=== PATIENT | male | born 1960 | race Native Hawaiian/Other Pacific Islander ===

== ENCOUNTER 2019-08-16 19:23 | Emergency (ER) | payer BC ==
[~2019-08-16] VITALS: Ht 180.3 cm; Wt 111.1 kg
[2019-08-16 21:13] LABS: PLATELET COUNT 123 K/uL (142-355)
[2019-08-16 21:20] LABS: POTASSIUM 4.1 mmol/L (3.6-5.2); SODIUM 138 mmol/L (136-145)
[2019-08-16 22:55] VITALS: BP 116/74; TEMP 97.5
== END 2019-08-16 22:55 | disposition home or self-care (01) ==
LOC: ED 19:23
PROVIDERS: Emergency Medicine
DX: J20.9 Acute bronchitis, unspecified (principal); J44.1 Chronic obstructive pulmonary disease with (acute) exacerbation; J44.0 Chronic obstructive pulmonary disease with (acute) lower respiratory infection; F17.210 Nicotine dependence, cigarettes, uncomplicated
CPT/HCPCS: 80053; 83735; 84484; 85027; 87502; 94664; 99283; 99284

== ENCOUNTER 2020-06-27 08:37 | Outpatient (CLI) | payer OTHER | END 2020-06-27 20:05 | disposition home or self-care (01) | LOC: US 08:37 | DX: R10.11 Right upper quadrant pain (principal) ==

== ENCOUNTER 2020-07-30 14:58 | Outpatient (CLI) | payer OTHER | END 2020-07-30 23:20 | disposition home or self-care (01) | LOC: MRI 14:58 | DX: M47.816 Spondylosis without myelopathy or radiculopathy, lumbar region (principal); M54.12 Radiculopathy, cervical region; M96.1 Postlaminectomy syndrome, not elsewhere classified ==

== ENCOUNTER 2020-08-04 07:55 | Outpatient (CLI) | payer OTHER | END 2020-08-04 19:08 | disposition home or self-care (01) | LOC: EMG 07:55 | DX: M54.12 Radiculopathy, cervical region (principal); M47.816 Spondylosis without myelopathy or radiculopathy, lumbar region | CPT/HCPCS: 95860; 95910 ==

== ENCOUNTER 2020-09-26 10:43 | Outpatient (CLI) | payer OTHER | END 2020-09-26 18:58 | disposition home or self-care (01) | LOC: MRI 10:43 | PROVIDERS: ATTEND Pain Medicine Interventional Pain Medicine | DX: M54.16 Radiculopathy, lumbar region (principal) ==

== ENCOUNTER → 2020-12-23 | Outpatient (CLI) | payer OTHER | LOC: INF 16:20 | PROVIDERS: ATTEND Internal Medicine | DX: Z23 Encounter for immunization (principal) | CPT/HCPCS: 96372 ==

== ENCOUNTER 2021-01-23 09:12 | Outpatient (CLI) | payer OTHER | END 2021-01-23 19:31 | disposition home or self-care (01) | LOC: INF 09:12 | PROVIDERS: ATTEND Internal Medicine | DX: Z23 Encounter for immunization (principal) | CPT/HCPCS: 96372 ==

== ENCOUNTER 2021-05-22 10:34 | Outpatient (CLI) | payer OTHER | END 2021-05-22 22:37 | disposition home or self-care (01) | LOC: RAD 10:34 | PROVIDERS: ATTEND Internal Medicine Pulmonary Disease | DX: J44.9 Chronic obstructive pulmonary disease, unspecified (principal) ==

== ENCOUNTER 2021-06-19 09:25 | Outpatient (CLI) | payer OTHER | END 2021-06-19 21:57 | disposition home or self-care (01) | LOC: CT 09:25 | PROVIDERS: ATTEND Internal Medicine Pulmonary Disease | DX: F17.200 Nicotine dependence, unspecified, uncomplicated (principal) ==

== ENCOUNTER 2022-08-04 10:20 | Outpatient (CLI) | payer OTHER | END 2022-08-04 19:32 | disposition home or self-care (01) | LOC: US 10:20 | PROVIDERS: ATTEND Internal Medicine Cardiovascular Disease | DX: R09.89 Other specified symptoms and signs involving the circulatory and respiratory systems (principal) ==

== ENCOUNTER 2022-12-28 15:53 | Outpatient (CLI) | payer OTHER | END 2022-12-28 20:16 | disposition home or self-care (01) | LOC: CT 15:53 | PROVIDERS: ATTEND Physician Assistant | DX: F17.210 Nicotine dependence, cigarettes, uncomplicated (principal) ==

== ENCOUNTER → 2023-04-04 | Outpatient (CLI) | payer OTHER | LOC: CT 14:40 | PROVIDERS: ATTEND Internal Medicine Pulmonary Disease | DX: J96.11 Chronic respiratory failure with hypoxia (principal) | CPT/HCPCS: 36415; 36600; 82565; 82805; 84520; Q9963 ==